=== PATIENT | male | born 1940 | race Caucasian/White ===

== ENCOUNTER 2017-10-02 15:19 | Inpatient (IN) | payer OTHER ==
[2017-10-02] MEDS: CEFEPIME 1GM/50 ML (PMX) 50 ML IVPB (20:39)
[2017-10-02] MEDS: SODIUM CHLORIDE 0.9% 1L BAG IV* (20:39)
[2017-10-02 20:49] LABS: ADD MAN DIFF? NO
[2017-10-02 20:51] LABS: WHITE BLOOD COUNT 10.5 10^3/ul (4.8-10.8)
[2017-10-02 20:51] LABS: BASOPHIL # 0.1 10^3/ul (0.0-0.1); BASOPHILS % 0.5 % (0.0-2.0); EOSINOPHILS # 0.1 10^3/ul (0.0-0.5); EOSINOPHILS % 1.1 % (0.0-7.0); HEMATOCRIT 34.4 % (42.0-52.0); HEMOGLOBIN 10.7 g/dl (14.0-18.0); LYMPHOCYTES # 1.7 10^3/ul (0.8-2.9); MEAN CORPUSCULAR HEMOGLOBIN 26.4 pg (29.0-33.0); MEAN CORPUSCULAR HGB CONC 31.1 g/dl (32.0-37.0); MEAN CORPUSCULAR VOLUME 84.9 fl (82.0-101.0); MONOCYTE # 0.9 10^3/ul (0.3-0.9); MONOCYTES % 8.4 % (0.0-11.0); NEUTROPHIL # 7.6 10^3/ul (1.6-7.5); NEUTROPHILS % 71.9 % (39.0-77.0); PLATELET COUNT 454 10^3/UL (140-415); RED BLOOD COUNT 4.05 10^6/ul (4.70-6.10); RED CELL DISTRIBUTION WIDTH 16.1 % (11.5-14.5)
[2017-10-02] MEDS: VANCOMYCIN 1 GM (PMX) 250 ML IVPB (20:54)
[2017-10-02 21:11] LABS: ALANINE AMINOTRANSFERASE 36 IU/L (13-69); ALBUMIN 3.8 g/dl (3.3-4.9); ALBUMIN/GLOBULIN RATIO 0.86; ALKALINE PHOSPHATASE 121 IU/L (42-121); ANION GAP 16 (8-16); ASPARTATE AMINO TRANSFERASE 35 IU/L (15-46); BILIRUBIN,INDIRECT 0.1 mg/dl (0-1.1); BILIRUBIN,TOTAL 0.1 mg/dl (0.2-1.3); BLOOD UREA NITROGEN 39 mg/dl (7-20); CALCIUM 9.6 mg/dl (8.4-10.2); CARBON DIOXIDE 24 mmol/L (21-31); CHLORIDE 105 mmol/L (97-110); CREATININE 1.68 mg/dl (0.61-1.24); GLUCOSE 115 mg/dl (70-220); POTASSIUM 4.1 mmol/L (3.5-5.1); SODIUM 141 mmol/L (135-144); TOTAL PROTEIN 8.2 g/dl (6.1-8.1)
[2017-10-02 21:13] LABS: PROTIME 13.3 Sec (11.9-14.9)
[2017-10-02 21:14] LABS: PARTIAL THROMBOPLASTIN TIME 30.6 Sec (25.0-35.0)
[2017-10-02 21:23] LABS: ADD UMIC NO; UR ASCORBIC ACID NEGATIVE (NEGATIVE); UR BILIRUBIN (Dip) NEGATIVE (NEGATIVE); UR BLOOD (Dip) NEGATIVE (NEGATIVE); UR CLARITY CLEAR (CLEAR); UR COLOR YELLOW (YELLOW); UR GLUCOSE (Dip) NEGATIVE (NEGATIVE); UR KETONES (Dip) NEGATIVE (NEGATIVE); UR LEUKOCYTE ESTERASE (Dip) NEGATIVE Leu/ul (NEGATIVE); UR NITRITE (Dip) NEGATIVE (NEGATIVE); UR SPECIFIC GRAVITY (Dip) 1.014 (1.003-1.030); UR TOTAL PROTEIN (Dip) NEGATIVE (NEGATIVE); UR UROBILINOGEN (Dip) NEGATIVE (NEGATIVE)
[2017-10-02 21:26] LABS: TROPONIN-I < 0.012 ng/ml (0.00-0.12)
[2017-10-02 21:33] LABS: LACTIC ACID 1.3 mmol/L (0.5-2.0)
[2017-10-02 23:15] LABS: LACTIC ACID 0.8 mmol/L (0.5-2.0)
[2017-10-03 00:49] LABS: LACTIC ACID 0.7 mmol/L (0.5-2.0)
[2017-10-03] MEDS ORDERED: morphine 2 MG INJ IV (02:00)
[2017-10-03] MEDS ORDERED: NACL 0.9% 3 ML SYG IV (02:00)
[2017-10-03] MEDS ORDERED: ONDANSETRON 4 MG INJ IV (02:00)
[2017-10-03] MEDS ORDERED: ALBUTEROL/IPRATROPIUM (NEB) 3 ML AMP HHN (02:00)
[2017-10-03] MEDS: LORAZEPAM 1 MG TAB PO (02:40)
[2017-10-03] MEDS: METOPROLOL 25 MG TAB PO ×3 (04:21→20:23)
[2017-10-03] MEDS: SOD CHLORIDE 0.9% 1,000 ML IV ×2 (04:22→14:06)
[2017-10-03] MEDS: SOD CHLORIDE 0.9% 500 ML IV (05:42)
[2017-10-03 07:58] LABS: ADD MAN DIFF? NO
[2017-10-03 08:07] LABS: WHITE BLOOD COUNT 10.9 10^3/ul (4.8-10.8)
[2017-10-03 08:07] LABS: BASOPHIL # 0.1 10^3/ul (0.0-0.1); BASOPHILS % 0.5 % (0.0-2.0); EOSINOPHILS % 0.4 % (0.0-7.0); HEMATOCRIT 26.9 % (42.0-52.0); HEMOGLOBIN 8.7 g/dl (14.0-18.0); LYMPHOCYTES # 1.3 10^3/ul (0.8-2.9); LYMPHOCYTES % 12.1 % (15.0-51.0); MEAN CORPUSCULAR HGB CONC 32.3 g/dl (32.0-37.0); MEAN CORPUSCULAR VOLUME 83.5 fl (82.0-101.0); MONOCYTE # 0.9 10^3/ul (0.3-0.9); MONOCYTES % 8.4 % (0.0-11.0); NEUTROPHIL # 8.4 10^3/ul (1.6-7.5); NEUTROPHILS % 77.3 % (39.0-77.0); PLATELET COUNT 387 10^3/UL (140-415); RED BLOOD COUNT 3.22 10^6/ul (4.70-6.10); RED CELL DISTRIBUTION WIDTH 16.1 % (11.5-14.5)
[2017-10-03] MEDS: HYDROCODONE/APAP (10/325) TAB PO (08:18)
[2017-10-03 08:27] LABS: ALANINE AMINOTRANSFERASE 35 IU/L (13-69); ALBUMIN 2.7 g/dl (3.3-4.9); ALBUMIN/GLOBULIN RATIO 0.79; ALKALINE PHOSPHATASE 90 IU/L (42-121); ANION GAP 13 (8-16); ASPARTATE AMINO TRANSFERASE 30 IU/L (15-46); BILIRUBIN,INDIRECT 0.2 mg/dl (0-1.1); BILIRUBIN,TOTAL 0.2 mg/dl (0.2-1.3); BLOOD UREA NITROGEN 27 mg/dl (7-20); CALCIUM 8.6 mg/dl (8.4-10.2); CARBON DIOXIDE 22 mmol/L (21-31); CHLORIDE 109 mmol/L (97-110); CHOL/HDL RATIO 2.7 RATIO; CHOLESTEROL 94 mg/dl (100-200); CREATININE 1.23 mg/dl (0.61-1.24); GLUCOSE 88 mg/dl (70-220); HDL CHOLESTEROL 34 mg/dl (31-75); LDL CHOLESTEROL,CALCULATED 43 mg/dl; POTASSIUM 4.1 mmol/L (3.5-5.1); SODIUM 140 mmol/L (135-144); TOTAL PROTEIN 6.1 g/dl (6.1-8.1); TRIGLYCERIDES 84 mg/dl (0-149)
[2017-10-03] MEDS: DOCUSATE SODIUM 100 MG CAP PO ×2 (08:48→20:22)
[2017-10-03] MEDS: ASPIRIN (EC) 81 MG TAB PO (08:48)
[2017-10-03] MEDS: GABAPENTIN 300 MG CAP PO ×2 (08:48→20:20)
[2017-10-03] MEDS: HEPARIN 5,000 UNIT/0.5 ML VIAL SC ×2 (08:48→20:25)
[2017-10-03] MEDS: LINAGLIPTIN 5 MG TABLET PO (08:48)
[2017-10-03] MEDS: FERROUS SULFATE (EC) 325 MG TAB PO ×3 (08:48→20:22)
[2017-10-03] MEDS: NICOTINE (21 MG/24 HR) PATCH TRANSDERM (08:51)
[2017-10-03 08:52] LABS: HEMOGLOBIN A1C 6.2 % (0-5.9)
[2017-10-03] MEDS: TAMSULOSIN (SR) 0.4 MG CAP PO (20:22)
[2017-10-03] MEDS: ATORVASTATIN 40 MG TAB PO (20:22)
[2017-10-03] MEDS ORDERED: VANCOMYCIN IV PER PHARMACY XX (23:00)
[2017-10-04] MEDS: SOD CHLORIDE 0.9% 1,000 ML IV ×3 (00:30→20:30)
[2017-10-04] MEDS: HYDROCODONE/APAP (10/325) TAB PO (02:30)
[2017-10-04] MEDS: VANCOMYCIN 1.25 GM in SOD CHLORIDE 0.9% 250 ML IVPB (05:42)
[2017-10-04] MEDS: FERROUS SULFATE (EC) 325 MG TAB PO ×3 (08:14→21:37)
[2017-10-04] MEDS: ASPIRIN (EC) 81 MG TAB PO (08:14)
[2017-10-04] MEDS: HEPARIN 5,000 UNIT/0.5 ML VIAL SC ×2 (08:14→21:41)
[2017-10-04] MEDS: GABAPENTIN 300 MG CAP PO ×2 (08:14→21:37)
[2017-10-04] MEDS: LINAGLIPTIN 5 MG TABLET PO (08:14)
[2017-10-04] MEDS: DOCUSATE SODIUM 100 MG CAP PO ×2 (08:14→21:37)
[2017-10-04] MEDS: NICOTINE (21 MG/24 HR) PATCH TRANSDERM (08:15)
[2017-10-04] MEDS: METOPROLOL 25 MG TAB PO ×2 (08:15→21:37)
[2017-10-04] MEDS: CEFEPIME 1GM/50 ML (PMX) 50 ML IVPB ×2 (08:33→22:12)
[2017-10-04 08:48] LABS: ADD MAN DIFF? NO
[2017-10-04 08:57] LABS: WHITE BLOOD COUNT 9.7 10^3/ul (4.8-10.8)
[2017-10-04 08:57] LABS: BASOPHILS % 0.3 % (0.0-2.0); EOSINOPHILS # 0.1 10^3/ul (0.0-0.5); EOSINOPHILS % 0.8 % (0.0-7.0); HEMATOCRIT 28.1 % (42.0-52.0); HEMOGLOBIN 9.2 g/dl (14.0-18.0); LYMPHOCYTES # 2.1 10^3/ul (0.8-2.9); LYMPHOCYTES % 21.1 % (15.0-51.0); MEAN CORPUSCULAR HGB CONC 32.7 g/dl (32.0-37.0); MEAN CORPUSCULAR VOLUME 82.4 fl (82.0-101.0); MEAN PLATELET VOLUME 9.2 fl (7.4-10.4); MONOCYTE # 0.9 10^3/ul (0.3-0.9); NEUTROPHIL # 6.6 10^3/ul (1.6-7.5); NEUTROPHILS % 67.7 % (39.0-77.0); PLATELET COUNT 354 10^3/UL (140-415); RED BLOOD COUNT 3.41 10^6/ul (4.70-6.10); RED CELL DISTRIBUTION WIDTH 16.2 % (11.5-14.5)
[2017-10-04 09:21] LABS: ANION GAP 12 (8-16); BLOOD UREA NITROGEN 22 mg/dl (7-20); CALCIUM 8.7 mg/dl (8.4-10.2); CARBON DIOXIDE 21 mmol/L (21-31); CHLORIDE 106 mmol/L (97-110); GLUCOSE 146 mg/dl (70-220); PHOSPHORUS 2.6 mg/dl (2.5-4.9); POTASSIUM 3.6 mmol/L (3.5-5.1); SODIUM 135 mmol/L (135-144)
[2017-10-04 09:37] LABS: MAGNESIUM 1.6 mg/dl (1.7-2.5)
[2017-10-04] MEDS: MAGNESIUM SULFATE 2 GM/50 ML 50 ML IVPB (12:48)
[2017-10-04] MEDS: SILVER SULFADIAZINE 1% 25 GM CR TOP ×2 (15:00→21:38)
[2017-10-04] MEDS: TAMSULOSIN (SR) 0.4 MG CAP PO (21:36)
[2017-10-04] MEDS: ATORVASTATIN 40 MG TAB PO (21:36)
[2017-10-05] MEDS: SOD CHLORIDE 0.9% 1,000 ML IV ×2 (05:36→18:02)
[2017-10-05] MEDS: VANCOMYCIN 1.5 GM in SOD CHLORIDE 0.9% 250 ML IVPB (05:37)
[2017-10-05] MEDS: ASPIRIN (EC) 81 MG TAB PO (08:49)
[2017-10-05] MEDS: DOCUSATE SODIUM 100 MG CAP PO ×2 (08:49→20:42)
[2017-10-05] MEDS: FERROUS SULFATE (EC) 325 MG TAB PO ×3 (08:49→20:42)
[2017-10-05] MEDS: ACETAMINOPHEN 325 MG TAB PO (08:50)
[2017-10-05] MEDS: LINAGLIPTIN 5 MG TABLET PO (08:50)
[2017-10-05] MEDS: GABAPENTIN 300 MG CAP PO ×2 (08:51→20:42)
[2017-10-05] MEDS: HEPARIN 5,000 UNIT/0.5 ML VIAL SC ×2 (08:52→20:52)
[2017-10-05] MEDS: METOPROLOL 25 MG TAB PO ×2 (08:54→20:47)
[2017-10-05] MEDS: CEFEPIME 1GM/50 ML (PMX) 50 ML IVPB ×2 (08:55→23:09)
[2017-10-05 08:56] LABS: ADD MAN DIFF? NO
[2017-10-05 09:00] LABS: BASOPHILS % 0.2 % (0.0-2.0); EOSINOPHILS # 0.1 10^3/ul (0.0-0.5); EOSINOPHILS % 1.4 % (0.0-7.0); HEMATOCRIT 27.3 % (42.0-52.0); HEMOGLOBIN 8.8 g/dl (14.0-18.0); LYMPHOCYTES # 1.5 10^3/ul (0.8-2.9); LYMPHOCYTES % 19.1 % (15.0-51.0); MEAN CORPUSCULAR HEMOGLOBIN 26.4 pg (29.0-33.0); MEAN CORPUSCULAR HGB CONC 32.2 g/dl (32.0-37.0); MEAN PLATELET VOLUME 9.3 fl (7.4-10.4); MONOCYTE # 0.8 10^3/ul (0.3-0.9); MONOCYTES % 9.4 % (0.0-11.0); NEUTROPHIL # 5.6 10^3/ul (1.6-7.5); NEUTROPHILS % 68.9 % (39.0-77.0); PLATELET COUNT 347 10^3/UL (140-415); RED BLOOD COUNT 3.33 10^6/ul (4.70-6.10)
[2017-10-05 09:00] LABS: WHITE BLOOD COUNT 8.1 10^3/ul (4.8-10.8)
[2017-10-05] MEDS: SILVER SULFADIAZINE 1% 25 GM CR TOP ×3 (09:00→21:41)
[2017-10-05] MEDS: NICOTINE (21 MG/24 HR) PATCH TRANSDERM (09:00)
[2017-10-05 09:14] LABS: ANION GAP 13 (8-16); BLOOD UREA NITROGEN 16 mg/dl (7-20); CALCIUM 8.5 mg/dl (8.4-10.2); CARBON DIOXIDE 24 mmol/L (21-31); CHLORIDE 105 mmol/L (97-110); CREATININE 1.08 mg/dl (0.61-1.24); GLUCOSE 107 mg/dl (70-220); POTASSIUM 3.5 mmol/L (3.5-5.1); SODIUM 138 mmol/L (135-144)
[2017-10-05] MEDS: HYDROCODONE/APAP (10/325) TAB PO ×2 (13:01→20:42)
[2017-10-05] MEDS: COLLAGENASE 30 GM TUBE TOP (13:01)
[2017-10-05] MEDS: ATORVASTATIN 40 MG TAB PO (20:42)
[2017-10-05] MEDS: TAMSULOSIN (SR) 0.4 MG CAP PO (20:42)
[2017-10-06] MEDS: HYDROCODONE/APAP (10/325) TAB PO (00:17)
[2017-10-06] MEDS: SOD CHLORIDE 0.9% 1,000 ML IV ×3 (02:44→22:40)
[2017-10-06] MEDS: HALOPERIDOL 5 MG INJ IM (03:18)
[2017-10-06] MEDS: LORAZEPAM 2 MG INJ IV ×2 (03:46→17:36)
[2017-10-06] MEDS: VANCOMYCIN 1.5 GM in SOD CHLORIDE 0.9% 250 ML IVPB (06:37)
[2017-10-06 08:05] LABS: ADD MAN DIFF? NO
[2017-10-06 08:14] LABS: HEMATOCRIT 29.7 % (42.0-52.0); HEMOGLOBIN 9.5 g/dl (14.0-18.0); LYMPHOCYTES % 13.6 % (15.0-51.0); MEAN CORPUSCULAR HEMOGLOBIN 26.7 pg (29.0-33.0); MEAN CORPUSCULAR VOLUME 83.4 fl (82.0-101.0); MEAN PLATELET VOLUME 9.3 fl (7.4-10.4); MONOCYTES % 6.7 % (0.0-11.0); NEUTROPHILS % 77.6 % (39.0-77.0); PLATELET COUNT 377 10^3/UL (140-415); RED BLOOD COUNT 3.56 10^6/ul (4.70-6.10); RED CELL DISTRIBUTION WIDTH 15.8 % (11.5-14.5)
[2017-10-06 08:15] LABS: BASOPHILS % 0.2 % (0.0-2.0); EOSINOPHILS # 0.1 10^3/ul (0.0-0.5); LYMPHOCYTES # 1.4 10^3/ul (0.8-2.9); MONOCYTE # 0.7 10^3/ul (0.3-0.9); NEUTROPHIL # 7.8 10^3/ul (1.6-7.5)
[2017-10-06 08:32] LABS: ANION GAP 12 (8-16); BLOOD UREA NITROGEN 17 mg/dl (7-20); CALCIUM 8.5 mg/dl (8.4-10.2); CARBON DIOXIDE 26 mmol/L (21-31); CHLORIDE 106 mmol/L (97-110); CREATININE 1.22 mg/dl (0.61-1.24); GLUCOSE 101 mg/dl (70-220); SODIUM 140 mmol/L (135-144)
[2017-10-06] MEDS: ASPIRIN (EC) 81 MG TAB PO (08:56)
[2017-10-06] MEDS: DOCUSATE SODIUM 100 MG CAP PO ×2 (08:56→21:00)
[2017-10-06] MEDS: FERROUS SULFATE (EC) 325 MG TAB PO ×3 (08:56→21:00)
[2017-10-06] MEDS: GABAPENTIN 300 MG CAP PO ×2 (08:56→21:00)
[2017-10-06] MEDS: LINAGLIPTIN 5 MG TABLET PO (08:56)
[2017-10-06] MEDS: METOPROLOL 25 MG TAB PO ×2 (08:57→21:52)
[2017-10-06] MEDS: NICOTINE (21 MG/24 HR) PATCH TRANSDERM (08:58)
[2017-10-06] MEDS: SILVER SULFADIAZINE 1% 25 GM CR TOP ×3 (08:59→21:53)
[2017-10-06] MEDS: COLLAGENASE 30 GM TUBE TOP (08:59)
[2017-10-06] MEDS: HEPARIN 5,000 UNIT/0.5 ML VIAL SC ×2 (09:00→21:00)
[2017-10-06] MEDS: CEFEPIME 1GM/50 ML (PMX) 50 ML IVPB ×2 (10:51→21:00)
[2017-10-06] MEDS: ALPRAZOLAM 0.25 MG TAB PO (16:33)
[2017-10-06] MEDS: TAMSULOSIN (SR) 0.4 MG CAP PO (21:00)
[2017-10-06] MEDS: ATORVASTATIN 40 MG TAB PO (21:00)
[2017-10-06] MEDS: LORAZEPAM 1 MG TAB PO (21:51)
[2017-10-07 05:39] LABS: ADD MAN DIFF? NO
[2017-10-07 05:40] LABS: BASOPHILS % 0.4 % (0.0-2.0); EOSINOPHILS # 0.3 10^3/ul (0.0-0.5); EOSINOPHILS % 3.5 % (0.0-7.0); HEMATOCRIT 27.5 % (42.0-52.0); HEMOGLOBIN 8.7 g/dl (14.0-18.0); LYMPHOCYTES # 1.7 10^3/ul (0.8-2.9); LYMPHOCYTES % 21.9 % (15.0-51.0); MEAN CORPUSCULAR HEMOGLOBIN 26.1 pg (29.0-33.0); MEAN CORPUSCULAR HGB CONC 31.6 g/dl (32.0-37.0); MEAN CORPUSCULAR VOLUME 82.6 fl (82.0-101.0); MEAN PLATELET VOLUME 9.1 fl (7.4-10.4); MONOCYTE # 0.7 10^3/ul (0.3-0.9); MONOCYTES % 8.6 % (0.0-11.0); NEUTROPHIL # 4.9 10^3/ul (1.6-7.5); NEUTROPHILS % 64.6 % (39.0-77.0); PLATELET COUNT 331 10^3/UL (140-415); RED BLOOD COUNT 3.33 10^6/ul (4.70-6.10); RED CELL DISTRIBUTION WIDTH 15.9 % (11.5-14.5)
[2017-10-07 05:40] LABS: WHITE BLOOD COUNT 7.7 10^3/ul (4.8-10.8)
[2017-10-07 06:07] LABS: ANION GAP 10 (8-16); BLOOD UREA NITROGEN 15 mg/dl (7-20); CALCIUM 8.5 mg/dl (8.4-10.2); CARBON DIOXIDE 25 mmol/L (21-31); CHLORIDE 108 mmol/L (97-110); CREATININE 1.09 mg/dl (0.61-1.24); GLUCOSE 87 mg/dl (70-220); POTASSIUM 3.5 mmol/L (3.5-5.1); SODIUM 139 mmol/L (135-144)
[2017-10-07 06:22] LABS: VANCOMYCIN,TROUGH 10.8 ug/ml (10.0-20.0)
[2017-10-07] MEDS: VANCOMYCIN 1.5 GM in SOD CHLORIDE 0.9% 250 ML IVPB (06:37)
[2017-10-07] MEDS: SOD CHLORIDE 0.9% 1,000 ML IV ×2 (08:30→17:25)
[2017-10-07] MEDS: CEFEPIME 1GM/50 ML (PMX) 50 ML IVPB ×2 (09:14→21:37)
[2017-10-07] MEDS: NICOTINE (21 MG/24 HR) PATCH TRANSDERM (09:15)
[2017-10-07] MEDS: GABAPENTIN 300 MG CAP PO ×2 (09:16→21:35)
[2017-10-07] MEDS: LINAGLIPTIN 5 MG TABLET PO (09:16)
[2017-10-07] MEDS: FERROUS SULFATE (EC) 325 MG TAB PO ×3 (09:16→21:35)
[2017-10-07] MEDS: ASPIRIN (EC) 81 MG TAB PO (09:16)
[2017-10-07] MEDS: DOCUSATE SODIUM 100 MG CAP PO ×2 (09:16→21:35)
[2017-10-07] MEDS: METOPROLOL 25 MG TAB PO ×2 (09:16→21:36)
[2017-10-07] MEDS: HEPARIN 5,000 UNIT/0.5 ML VIAL SC ×2 (09:18→21:36)
[2017-10-07] MEDS: SILVER SULFADIAZINE 1% 25 GM CR TOP ×3 (09:20→21:37)
[2017-10-07] MEDS: COLLAGENASE 30 GM TUBE TOP (09:20)
[2017-10-07] MEDS: IODIXANOL LOCM 100 ML BTL (17:25)
[2017-10-07] MEDS: SOD CHLORIDE 0.9% 100 ML (17:25)
[2017-10-07] MEDS: IODIXANOL LOCM 50 ML BTL (17:26)
[2017-10-07] MEDS: ATORVASTATIN 40 MG TAB PO (21:35)
[2017-10-07] MEDS: TAMSULOSIN (SR) 0.4 MG CAP PO (21:36)
[2017-10-08] MEDS: VANCOMYCIN 1.5 GM in SOD CHLORIDE 0.9% 250 ML IVPB (05:09)
[2017-10-08 08:28] LABS: ADD MAN DIFF? NO
[2017-10-08 08:33] LABS: BASOPHILS % 0.4 % (0.0-2.0); EOSINOPHILS # 0.3 10^3/ul (0.0-0.5); EOSINOPHILS % 3.6 % (0.0-7.0); HEMOGLOBIN 9.5 g/dl (14.0-18.0); LYMPHOCYTES # 1.6 10^3/ul (0.8-2.9); LYMPHOCYTES % 21.5 % (15.0-51.0); MEAN CORPUSCULAR HEMOGLOBIN 26.2 pg (29.0-33.0); MEAN CORPUSCULAR HGB CONC 31.7 g/dl (32.0-37.0); MEAN CORPUSCULAR VOLUME 82.6 fl (82.0-101.0); MEAN PLATELET VOLUME 9.1 fl (7.4-10.4); MONOCYTE # 0.6 10^3/ul (0.3-0.9); NEUTROPHIL # 4.7 10^3/ul (1.6-7.5); NEUTROPHILS % 65.7 % (39.0-77.0); PLATELET COUNT 377 10^3/UL (140-415); RED BLOOD COUNT 3.63 10^6/ul (4.70-6.10); RED CELL DISTRIBUTION WIDTH 15.7 % (11.5-14.5)
[2017-10-08 08:33] LABS: WHITE BLOOD COUNT 7.2 10^3/ul (4.8-10.8)
[2017-10-08 08:50] LABS: ANION GAP 12 (8-16); BLOOD UREA NITROGEN 16 mg/dl (7-20); CALCIUM 8.8 mg/dl (8.4-10.2); CARBON DIOXIDE 24 mmol/L (21-31); CHLORIDE 106 mmol/L (97-110); CREATININE 1.03 mg/dl (0.61-1.24); GLUCOSE 88 mg/dl (70-220); POTASSIUM 3.6 mmol/L (3.5-5.1); SODIUM 138 mmol/L (135-144)
[2017-10-08 08:56] LABS: PHOSPHORUS 3.3 mg/dl (2.5-4.9)
[2017-10-08 08:56] LABS: MAGNESIUM 1.6 mg/dl (1.7-2.5)
[2017-10-08] MEDS: DOCUSATE SODIUM 100 MG CAP PO ×2 (09:00→19:57)
[2017-10-08] MEDS: NICOTINE (21 MG/24 HR) PATCH TRANSDERM (09:10)
[2017-10-08] MEDS: METOPROLOL 25 MG TAB PO ×2 (09:11→19:58)
[2017-10-08] MEDS: GABAPENTIN 300 MG CAP PO ×2 (09:11→19:59)
[2017-10-08] MEDS: FERROUS SULFATE (EC) 325 MG TAB PO ×3 (09:11→19:58)
[2017-10-08] MEDS: ASPIRIN (EC) 81 MG TAB PO (09:11)
[2017-10-08] MEDS: LINAGLIPTIN 5 MG TABLET PO (09:11)
[2017-10-08] MEDS: COLLAGENASE 30 GM TUBE TOP (09:12)
[2017-10-08] MEDS: CEFEPIME 1GM/50 ML (PMX) 50 ML IVPB ×2 (09:12→19:57)
[2017-10-08] MEDS: SILVER SULFADIAZINE 1% 25 GM CR TOP ×3 (09:12→19:59)
[2017-10-08] MEDS: HEPARIN 5,000 UNIT/0.5 ML VIAL SC (09:18)
[2017-10-08] MEDS: MAGNESIUM OXIDE 400 MG TAB PO ×2 (18:36→20:05)
[2017-10-08] MEDS: ATORVASTATIN 40 MG TAB PO (19:58)
[2017-10-08] MEDS: TAMSULOSIN (SR) 0.4 MG CAP PO (19:59)
== END 2017-10-08 20:50 | DRG 602 ==
LOC: MS4 23:47 → E/R 15:19
DX: L03.115 Cellulitis of right lower limb (principal); L89.314 Pressure ulcer of right buttock, stage 4; G93.40 Encephalopathy, unspecified; L97.429 Non-pressure chronic ulcer of left heel and midfoot with unspecified severity; I70.238 Atherosclerosis of native arteries of right leg with ulceration of other part of lower leg; L03.116 Cellulitis of left lower limb; E11.9 Type 2 diabetes mellitus without complications; I10 Essential (primary) hypertension; N40.0 Benign prostatic hyperplasia without lower urinary tract symptoms; M19.90 Unspecified osteoarthritis, unspecified site; Z72.0 Tobacco use
CPT/HCPCS: 70450; 71045; 73630-LT; 75635; 80048; 80053; 80061; 80202; 81003; 83036; 83605; 83735; 84100; 84443; 84484; 85025; 85610; 85730; 87040; 87081; 87086; 93005; 93922; 93970